=== PATIENT | male | born 2000 | race Caucasian/White ===

== ENCOUNTER 2021-04-16 20:28 | Emergency (ER) | payer BC ==
[2021-04-16] MEDS ORDERED: MEDROL DOSEPAK 24 MG PO (23:28)
[2021-04-16] MEDS ORDERED: IBUPROFEN600 MG PO (23:28)
== END 2021-04-16 23:00 | disposition home or self-care (01) ==
LOC: ER1 20:28
DX: R05.9 Cough, unspecified (principal); Z20.822 Contact with and (suspected) exposure to COVID-19; R07.0 Pain in throat
CPT/HCPCS: 99283; U0002